=== PATIENT | male | born 1975 | race Hispanic/Latino ===

== ENCOUNTER 2021-07-18 23:32 | Emergency (ER) | payer OTHER ==
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
--- NOTE | 2021-07-19 00:42 | EDPHYS ---
Physician Documentation [facility] Name: Edwin Rajan Age: 45 yrs Sex: Male : 1975 Arrival Date: 07/18/2021 Time: 23:36 Bed 23 Private MD: ED Physician Brent Chao HPI: 07/19 00:37 This 45 yrs old Male presents to ER via Ambulatory with complaints of ma2 laceration over eyebrow. 00:37 The patient or guardian reports a laceration. The complaints affect the forehead. ma2 Context of injury: tripped and fell sustained a superifical laceration that is 24 hrs old. Onset: The symptoms/episode began/occurred suddenly, 1 day(s) ago. Associated signs and symptoms: Loss of consciousness: This patient did not experience any loss of consciousness. Pertinent negatives: the patient has not experienced a loss of conciousness, patient denies any alcohol consumption, biting tongue, dazed, headache, incontinence, nausea, neck pain, seizure, shortness of breath, tinnitus, vomiting, weakness in extremities, generalized weakness. Severity of symptoms: At their worst the symptoms were mild, in the emergency department the symptoms are unchanged. The patient has not experienced similar symptoms in the past. Historical: - Allergies: 00:15 No Known Allergies; em - PMHx: 00:15 None; em - PSHx: 00:15 None; em - Immunization history:: Adult Immunizations up to date. - Social history:: Smoking status: Patient denies any tobacco usage or history of. - Family history:: not pertinent. ROS: 00:37 Constitutional: Negative for fever, chills, and weight loss. ma2 00:37 All other systems are negative. Exam: 00:37 Constitutional: This is a well developed, well nourished patient who is awake, alert, ma2 and in no acute distress. Head/Face: left forehead 3 cm laceration, washed and cleaned, otherwsie Normocephalic, atraumatic. Eyes: Pupils equal round and reactive to light, extra-ocular motions intact. Lids and lashes normal. Conjunctiva and sclera are non-icteric and not injected. Cornea within normal limits. Periorbital areas with no swelling, redness, or edema. ENT: Nares patent. No nasal discharge, no septal abnormalities noted. Tympanic membranes are normal and external auditory canals are clear. Oropharynx with no redness, swelling, or masses, exudates, or evidence of obstruction, uvula midline. Mucous membranes moist. Neck: Trachea midline, no thyromegaly or masses palpated, and no cervical lymphadenopathy. Supple, full range of motion without nuchal rigidity, or vertebral point tenderness. No Meningismus. Chest/axilla: Normal chest wall appearance and motion. Nontender with no deformity. No lesions are appreciated. Cardiovascular: Regular rate and rhythm with a normal S1 and S2. No gallops, murmurs, or rubs. Normal PMI, no JVD. No pulse deficits. Respiratory: Lungs have equal breath sounds bilaterally, clear to auscultation and percussion. No rales, rhonchi or wheezes noted. No increased work of breathing, no retractions or nasal flaring. Abdomen/GI: Soft, non-tender, with normal bowel sounds. No distension or tympany. No guarding or rebound. No evidence of tenderness throughout. Vital Signs: 00:13 BP 148 / 94; Pulse 83; Resp 18; Temp 98.2; Pulse Ox 99% on R/A; Weight 108.86 kg; em Height 6 ft. 0 in. (182.88 cm); 00:50 BP 148 / 97; Pulse 82; Resp 20; Temp 98.6; Pulse Ox 99% on R/A; cc4 00:13 Body Mass Index 32.55 (108.86 kg, 182.88 cm) em Laceration: 00:37 Wound Repair of 4cm ( 1.6in ) subcutaneous laceration to face. Linear shaped.. Distal ma2 neuro/vascular/tendon intact. Skin closed with thin layer steristrips using simple sutures and sterile technique. Dressed with 4x4's. Patient tolerated well. MDM: 00:18 Patient medically screened. ma2 00:37 Differential diagnosis: Contusion of Hematoma on Laceration of. Data reviewed: vital ma2 signs, nurses notes, EMS record. Counseling: I had a detailed discussion with the patient and/or guardian regarding: the historical points, exam findings, and any diagnostic results supporting the discharge/admit diagnosis, the presence of at least one elevated blood pressure reading (>120/80) during this emergency department visit, the need for outpatient follow up. Response to treatment: the patient's symptoms have markedly improved after treatment. ED course: wound is ? 12 hrs old and starting to heal already, steristrips applied, suturing is not indicated as this is > 12 hrs cut. Administered Medications: 00:45 Drug: Tetanus-Diphtheria Toxoid Adult 0.5 ml {Mash Preparatory Operator: [email or web address]. Exp: cc4 01/26/2023. Lot #: [id number]. } Route: IM; Site: right deltoid; 00:50 Follow up: Response: No adverse reaction cc4 Disposition Summary: 07/19/21 00:42 Discharge Ordered Location: Home ma2 Condition: Stable ma2 Diagnosis - Laceration without foreign body of other part of head - left forehead ma2 Followup: ma2 - With: Private Physician - When: Tomorrow - Reason: Continuance of care Discharge Instructions: - Discharge Summary Sheet ma2 - Laceration Care, Adult, [id number] ma2 Forms: - Medication Reconciliation Form ma2 - Thank You Letter ma2 - Antibiotic Education ma2 - Prescription Opioid Use ma2 Signatures: Mickey Dutta, RN Brent Pak MD MD ma2 Lorna Alvarez RN RN cc4
[2021-07-19 01:32] VITALS: BP 148/94; TEMP 98.2; O2SAT 99
[2021-07-19] MEDS ORDERED: TETANUS & DIPHTHERIA TOX,ADULT 0.5 ML VIAL ONE (01:36)
== END 2021-07-19 01:25 | disposition home or self-care (01) ==
LOC: ER 23:32
PROC: 0JQ10ZZ Repair Face Subcutaneous Tissue and Fascia, Open Approach (ICD-10-PCS; principal; 2021-07-19)
DX: S01.81XA Laceration without foreign body of other part of head, initial encounter (principal); W01.0XXA Fall on same level from slipping, tripping and stumbling without subsequent striking against object, initial encounter; Z23 Encounter for immunization
CPT/HCPCS: 90471; 90714; 99283